=== PATIENT | male | born 1960 | race Caucasian/White ===

== ENCOUNTER → 2023-08-01 17:29 | Outpatient (REF) | payer OTHER, SELFPAY | LOC: RAD 17:29 | PROVIDERS: ATTENDING PHYSICIAN Family Medicine | DX: Z00.00 Encounter for general adult medical examination without abnormal findings (principal) | CPT/HCPCS: 71046 ==

== ENCOUNTER → 2024-03-13 18:39 | Outpatient (REF) | payer OTHER, SELFPAY | LOC: UCDH 18:39 | PROVIDERS: ATTENDING PHYSICIAN Physician Assistant Medical; FAMILY PHYSICIAN Family Medicine | DX: R05.9 Cough, unspecified (principal) | CPT/HCPCS: 71046 ==